=== PATIENT | male | born 1995 | race Caucasian/White ===

== ENCOUNTER 2016-07-23 10:14 | Inpatient (IN) | payer OTHER ==
[~2016-07-23] VITALS: Ht 180.3 cm; Wt 72.9 kg
[2016-07-23] MEDS ORDERED: SODIUM CHLORIDE 0.9% 1000ML 1,000 ML IV STA ×2 (10:39)
[2016-07-23] MEDS ORDERED: ONDANSETRON INJ 2 MG/ML 2 ML VIAL IV STA (10:39)
--- NOTE | 2016-07-23 10:41 | EMERGENCY ROOM VISIT NOTE ---
History Report prepared by Olya: Viola Zaragoza Under the Supervision of: Dr. Eder Skinner D.O. First contact with patient: 10:19 Chief Complaint: ABDOMINAL PAIN Stated Complaint: SEVERE ABD. PAIN History of Present Illness The patient is a 21 year old male who presents to the Emergency Room with complaints of constant severe abdominal pain beginning 1 day prior to arrival. He notes that the pain does not change location and does not radiate to his back or chest. The patient is experiencing nausea and has been vomiting since 1am this morning. He denies rectal bleeding, diarrhea, fever, chills, or worsening of pain with walking. 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 A total of 10 systems reviewed and were otherwise negative. Past Medical & Surgical Medical Problems: (1) No chronic problems (2) SBO (small bowel obstruction) Surgical Problems: (1) S/P appendectomy Family History Patient reports no known family medical history. Social History Smoking Status: Never Smoker Smokeless Tobacco Use: No Alcohol Use: none Marital Status: single Housing Status: lives alone Occupation Status: employed Current/Historical Medications No Active Prescriptions or Reported Meds Allergies Coded Allergies: No Known Allergies (Unverified , 07/23/16) Physical Exam Vital Signs Date Time Temp Pulse Resp B/P Pulse Ox O2 Delivery O2 Flow Rate FiO2 07/23/16 16:20 66 10 136/73 98 Room Air 07/23/16 15:31 Room Air 07/23/16 14:58 82 07/23/16 14:21 77 16 124/73 98 Room Air 07/23/16 12:14 85 16 121/70 99 Room Air 07/23/16 11:07 84 07/23/16 10:26 36.6 99 16 133/81 100 Room Air Physical Exam GENERAL: Patient is awake, alert, and in no acute distress. Patient is resting comfortably and showing no signs of anxiety EYES: The conjunctivae are clear. The pupils are round and reactive. EARS, NOSE, MOUTH AND THROAT: The nose is without any evidence of any deformity. Mucous membranes are moist tongue is midline NECK: The neck is nontender and supple. RESPIRATORY: Normal respiratory effort is noted there is no evidence of wheezing rhonchi or rales CARDIOVASCULAR: Regular rate and rhythm noted there no murmurs rubs or gallops normal S1 normal S2 GASTROINTESTINAL: The abdomen is soft. Bowel sounds are present in all quadrants. Abdomen is moderately distended and diffusely tender, guarding across mid abdomen, no definite focal tenderness was illicit. MUSCULOSKELETAL/EXTREMITIES: There is no evidence of gross deformity full range of motion is noted in the hips and shoulders SKIN: There is no obvious evidence of any rash. There are no petechiae, pallor or cyanosis noted. NEUROLOGIC: Patient is awake alert and oriented x3 Medical Decision & Procedures ER Provider Diagnostic Interpretation: CT results as stated below per my review and radiologist interpretation. CT OF THE ABDOMEN AND PELVIS WITH CONTRAST CLINICAL HISTORY: Lower abdominal pain and vomiting. History of abdominal surgery. COMPARISON STUDY: None. TECHNIQUE: Following IV administration of 93 mL of Optiray-320, axial images of the abdomen and pelvis were obtained from the lung bases to the proximal femurs. Images were reviewed in the axial, sagittal, and coronal planes. IV contrast was administered without complication. Oral contrast was administered. CT DOSE: 378.59 mGy.cm FINDINGS: Lung bases are clear. The liver, spleen, adrenal glands, kidneys and pancreas are normal with the exception of an 8 mm hypodense lesion within the lower pole of the left kidney. This is too small to characterize but likely reflects a cyst. No pneumatosis, free air or portal venous gas is present. There is a small amount of lower abdominal and pelvic ascites. There is no abscess. There is mild dilatation of the mid small bowel with a small bowel feces sign and discrete transition point within the right lower quadrant shown on axial image 269 of 461. This represents a small bowel obstruction. Mild wall thickening of several small bowel loops is noted. Distal small bowel is decompressed. There is no lymphadenopathy. No suspicious skeletal lesions are identified. The appendix is not visualized and by report is surgically absent. IMPRESSION: Findings consistent with a moderate grade small bowel obstruction with transition point within the right lower quadrant, within the mid ileum. Associated mesenteric infiltration, a small amount of ascites and mild small bowel wall thickening. No pneumatosis, free air or portal venous gas. Given the clinical history, this obstruction is statistically on the basis of adhesions. Electronically signed by: Trevin Sosa M.D. 07/23/2016 1:39 PM Dictated Date/Time: 07/23/2016 1:29 PM Laboratory Results 07/23/16 10:55 Red Blood Count 5.86, Mean Corpuscular Volume 82.4, Mean Corpuscular Hemoglobin 28.3, Mean Corpuscular Hemoglobin Concent 34.4, Mean Platelet Volume 9.6, Neutrophils (%) (Auto) 84.4, Lymphocytes (%) (Auto) 8.3, Monocytes (%) (Auto) 6.6, Eosinophils (%) (Auto) 0.2, Basophils (%) (Auto) 0.1, Neutrophils # (Auto) 9.28, Lymphocytes # (Auto) 0.91, Monocytes # (Auto) 0.72, Eosinophils # (Auto) 0.02, Basophils # (Auto) 0.01 07/23/16 10:55 Test 07/23/16 10:55 07/23/16 12:17 White Blood Count 10.98 K/uL (4.8-10.8) Red Blood Count 5.86 M/uL (4.7-6.1) Hemoglobin 16.6 g/dL (14.0-18.0) Hematocrit 48.3 % (42-52) Mean Corpuscular Volume 82.4 fL (80-100) Mean Corpuscular Hemoglobin 28.3 pg (25-34) Mean Corpuscular Hemoglobin Concent 34.4 g/dl (32-36) Platelet Count 313 K/uL (130-400) Mean Platelet Volume 9.6 fL (7.4-10.4) Neutrophils (%) (Auto) 84.4 % Lymphocytes (%) (Auto) 8.3 % Monocytes (%) (Auto) 6.6 % Eosinophils (%) (Auto) 0.2 % Basophils (%) (Auto) 0.1 % Neutrophils # (Auto) 9.28 K/uL (1.4-6.5) Lymphocytes # (Auto) 0.91 K/uL (1.2-3.4) Monocytes # (Auto) 0.72 K/uL (0.11-0.59) Eosinophils # (Auto) 0.02 K/uL (0-0.5) Basophils # (Auto) 0.01 K/uL (0-0.2) RDW Standard Deviation 35.1 fL (36.4-46.3) RDW Coefficient of Variation 11.7 % (11.5-14.5) Immature Granulocyte % (Auto) 0.4 % Immature Granulocyte # (Auto) 0.04 K/uL (0.00-0.02) Anion Gap 8.0 mmol/L (3-11) Est Creatinine Clear Calc Drug Dose 143.4 ml/min Estimated GFR () 145.1 Estimated GFR (Non- 125.2 BUN/Creatinine Ratio 20.9 (10-20) Calcium Level 9.7 mg/dl (8.5-10.1) Total Bilirubin 1.1 mg/dl (0.2-1) Direct Bilirubin mg/dl (0-0.2) Aspartate Amino Transf (AST/SGOT) 26 U/L (15-37) Alanine Aminotransferase (ALT/SGPT) 40 U/L (12-78) Alkaline Phosphatase 90 U/L (45-117) Total Protein 8.7 gm/dl (6.4-8.2) Albumin 5.2 gm/dl (3.4-5.0) Lipase 184 U/L (73-393) Chemistry Specimen Hemolysis Urine Color YELLOW Urine Appearance CLOUDY (CLEAR) Urine pH 8.0 (4.5-7.5) Urine Specific [place] 1.016 (1.000-1.030) Urine Protein NEG (NEG) Urine Glucose (UA) NEG (NEG) Urine Ketones 3+ (NEG) Urine Occult Blood NEG (NEG) Urine Nitrite NEG (NEG) Urine Bilirubin NEG (NEG) Urine Urobilinogen NEG (NEG) Urine Leukocyte Esterase NEG (NEG) Urine WBC (Auto) 0 /hpf (0-5) Urine RBC (Auto) 0-4 /hpf (0-4) Urine Hyaline Casts (Auto) 0 /lpf (0-5) Urine Epithelial Cells (Auto) 5-10 /lpf (0-5) Urine Bacteria (Auto) NEG (NEG) Laboratory results per my review. Medications Administered Medications (Trade) Dose Ordered Sig/Breonna Route Start Time Stop Time Status Last Admin Dose Admin Sodium Chloride 1,000 ml @ 999 mls/hr Q1H1M STAT IV 07/23/16 10:39 07/23/16 11:39 DC 07/23/16 10:54 999 MLS/HR Sodium Chloride (Nss 1000ml) 1,000 ml @ 250 mls/hr Q4H STAT IV 07/23/16 10:39 07/23/16 14:38 DC 07/23/16 12:10 250 MLS/HR Ondansetron HCl (Zofran Inj) 4 mg NOW STAT IV 07/23/16 10:39 07/23/16 10:41 DC 07/23/16 10:54 4 MG Morphine Sulfate (MoRPHine SULFATE INJ) 4 mg Q15M PRN IV 07/23/16 10:45 08/06/16 10:44 07/23/16 14:14 4 MG ED Course 1033: The patient was evaluated in room B4. A complete history and physical examination were performed. 1039: Zofran Inj 4 mg IV, Sodium Chloride 1,000 ml @ 250 mls/hr IV, Sodium Chloride 1,000 ml @ 999 mls/hr IV. 1045: Morphine Sulfate Inj 4 mg IV. 1404: I discussed test results with the patient. 1407: I discussed the patient's case with Dr. Ibarra- [facility] [place]. The patient will be evaluated for further management. Dr. Ibarra would also like surgery to be consulted. 1412: I spoke with CHRISTIAN Gramajo - General surgery about the patient. She will come see the patient. 1419: Upon reevaluation, the patient is hemodynamically stable. I discussed results and treatment plan with him. He verbalizes agreement and understanding. I spoke with CHRISTIAN Moore of General Surgery. The patient will be evaluated for further management and care. Medical Decision Differential diagnosis: Etiologies such as appendicitis, diverticulitis, PUD, biliary pathology, UTI, pancreatitis, obstruction, mesenteric ischemia, aortic pathology, infections, inflammatory bowel disease, renal colic, as well as others were entertained. Nursing notes reviewed. The patient is a 21-year-old male who presented to the emergency department for an evaluation of abdominal pain and vomiting. [facility] and was sent to our emergency department for further evaluation. On physical exam the patient had significant abdominal pain. He also had abdominal distention. 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 He feels as though he had his appendix removed at that time as well. The patient's CT appear to be consistent with small bowel suction. I discussed the patient's laboratory and radiographic studies with him. He was treated with IV fluids IV pain medicine and IV antiemetics. On subsequent reevaluation he was feeling much better. I discussed his case with the on-call general surgery group. I also discussed his case with the on-call [facility] hospitalist. They've agreed to evaluate the patient in the emergency department for further management and disposition. Consults Time Called: 1406 Consulting Physician: Dr. Fred FLOWERS Returned Call: 1407 I discussed the patient's case with Dr. Katelin FLOWERS. The patient will be evaluated for further management. Dr. Ibarra would also like surgery to be consulted. Additional Consults: Time Called: 1410 Consulted Physician: CHRISTIAN Gramajo - General Surgery Returned Call: 1412 Additional Comments: I spoke with CHRISTIAN Gramajo - General surgery about the patient. She will come see the patient. Impression Primary Impression: Small bowel obstruction Additional Impression: Abdominal pain Scribe Attestation The scribe's documentation has been prepared under my direction and personally reviewed by me in its entirety. I confirm that the note above accurately reflects all work, treatment, procedures, and medical decision making performed by me. Departure Information Dispostion Being Evaluated By Hospitalist Prescriptions No Active Prescriptions or Reported Meds Referrals No Doctor, Assigned (PCP) Problem Qualifiers Additional Impression: Abdominal pain Abdominal location: generalized Qualified Codes: R10.84 - Generalized abdominal pain
[2016-07-23] MEDS: MoRPHine SULFATE 4 MG/ML 1 ML CARP\\VIAL IV PRN ×2 (10:55→14:14)
[2016-07-23] MEDS ORDERED: OPTIRAY 320 IV PRN (11:00)
[2016-07-23 11:12] LABS: BASO % 0.1 %; BASO ABS # 0.01 K/uL (0-0.2); COMPLETE YES; EOS % 0.2 %; HEMATOCRIT 48.3 % (42-52); IG% 0.4 %; LYMPH % 8.3 %; LYMPH ABS # 0.91 K/uL (1.2-3.4); MEAN CELL VOLUME 82.4 fL (80-100); MEAN CORPUSCULAR HEMOGLOBIN 28.3 pg (25-34); MEAN CORPUSCULAR HGB CONC 34.4 g/dl (32-36); MEAN PLATELET VOLUME 9.6 fL (7.4-10.4); MONO % 6.6 %; NEUT % 84.4 %; PLATELET COUNT 313 K/uL (130-400); RED BLOOD COUNT 5.86 M/uL (4.7-6.1); WHITE BLOOD COUNT 10.98 K/uL (4.8-10.8)
[2016-07-23 11:47] LABS: ALKALINE PHOSPHATASE 90 U/L (45-117); ALT/SGPT 40 U/L (12-78); AST/SGOT 26 U/L (15-37); BLOOD UREA NITROGEN 18 mg/dl (7-18); BUN/CREATININE RATIO 20.9 (10-20); CALCIUM 9.7 mg/dl (8.5-10.1); CARBON DIOXIDE 28 mmol/L (21-32); CHLORIDE 104 mmol/L (98-107); CREATININE 0.84 mg/dl (0.60-1.40); GLUCOSE 90 mg/dl (70-99); POTASSIUM 4.1 mmol/L (3.5-5.1); SODIUM 140 mmol/L (136-145)
[2016-07-23 12:33] LABS: MANUAL MICROSCOPIC REQUIRED? NO; REVIEW REQ? NO; URINE APPEARANCE CLOUDY (CLEAR); URINE BILIRUBIN NEG (NEG); URINE COLOR YELLOW; URINE NITRITE NEG (NEG); URINE SPECIFIC GRAVITY 1.016 (1.000-1.030); UROBILINOGEN NEG (NEG)
--- NOTE | 2016-07-23 13:40 | DIAGNOSTIC IMAGING REPORT ---
CT OF THE ABDOMEN AND PELVIS WITH CONTRAST CLINICAL HISTORY: Lower abdominal pain and vomiting. History of abdominal surgery. COMPARISON STUDY: None. TECHNIQUE: Following IV administration of 93 mL of Optiray-320, axial images of the abdomen and pelvis were obtained from the lung bases to the proximal femurs. Images were reviewed in the axial, sagittal, and coronal planes. IV contrast was administered without complication. Oral contrast was administered. CT DOSE: 378.59 mGy.cm FINDINGS: Lung bases are clear. The liver, spleen, adrenal glands, kidneys and pancreas are normal with the exception of an 8 mm hypodense lesion within the lower pole of the left kidney. This is too small to characterize but likely reflects a cyst. No pneumatosis, free air or portal venous gas is present. There is a small amount of lower abdominal and pelvic ascites. There is no abscess. There is mild dilatation of the mid small bowel with a small bowel feces sign and discrete transition point within the right lower quadrant shown on axial image 269 of 461. This represents a small bowel obstruction. Mild wall thickening of several small bowel loops is noted. Distal small bowel is decompressed. There is no lymphadenopathy. No suspicious skeletal lesions are identified. The appendix is not visualized and by report is surgically absent. IMPRESSION: Findings consistent with a moderate grade small bowel obstruction with transition point within the right lower quadrant, within the mid ileum. Associated mesenteric infiltration, a small amount of ascites and mild small bowel wall thickening. No pneumatosis, free air or portal venous gas. Given the clinical history, this obstruction is statistically on the basis of adhesions. Electronically signed by: Trevin Sosa M.D. 07/23/2016 1:39 PM Dictated Date/Time: 07/23/2016 1:29 PM
[2016-07-23 15:31] VITALS: Ht 180.3 cm; Wt 72.9 kg
--- NOTE | 2016-07-23 15:33 | Surgery Consultation ---
Consultation Date of Consultation: July 23, 2016. Attending Physician: Dr. Lanza Reason for Consultation: SBO (Cortney Mc PA-C) History of Present Illness Cisco is a pleasant 21 year-old male who presented to emergency department today with complaint of abdominal pain and nausea for the last 24 hours with associated vomiting for last 12 hours. Cisco states a few months ago he had on and off cramping abdominal pain that resolved on its own. States he did not see a doctor for it because it resolved. Yesterday he noticed mid abdominal pain, sharp stabbing in nature, chronic, not resolving and no radiation. States he had associated nausea and then vomiting that started at 4 am. Was not able to keep anything down. He had surgery when he was about 6 weeks old for Hirschsprung's disease and had prophylactic appendectomy. No other abdominal surgeries since. States his last bowel movement was 24 hours ago which was normal. Denies of every being admitted or treated for bowel obstruction in the past. Denies of any fever, chills, sweats, chest pain, shortness of breathing, palpitations or change in bowel habits. CT scan showed SBO with transition point in the RLQ and small bowel wall thickening consistent with Small bowel obstruction. He has slight leukocytosis of 10.9 Total bilirubin was slightly elevated at 1.1 LFTS and lipase within normal limits. (Cortney Mc PA-C) Past Medical/Surgical History Medical Problems: (1) Abdominal pain Status: Acute (2) Small bowel obstruction Status: Acute (Cortney Mc PA-C) Family History Patient reports no known family medical history. (Cortney Mc PA-C) Patient reports no known family medical history. (Delvis Lanza M.D.) Social History Smoking Status: Never Smoker Smokeless Tobacco Use: No Marital Status: single Housing Status: lives alone Occupation Status: employed (Cortney Mc PA-C) Allergies Coded Allergies: No Known Allergies (Unverified , 07/23/16) Home Medications No Active Prescriptions or Reported Meds Current Inpatient Medications Current Inpatient Medications Medications (Trade) Dose Ordered Sig/Breonna Route Start Time Stop Time Status Last Admin Dose Admin Morphine Sulfate (MoRPHine SULFATE INJ) 4 mg Q15M PRN IV 07/23/16 10:45 08/06/16 10:44 07/23/16 14:14 4 MG Ioversol (Optiray 320) 100 ml UD PRN IV 07/23/16 11:00 07/27/16 10:59 (Cortney Mc, PA-C) Review of Systems Constitutional: No chills, No fever, No sweats Respiratory: No dyspnea on exertion, No shortness of breath Cardiovascular: No chest pain, No palpitations Abdomen: + nausea, + pain, + vomiting, No constipation, No diarrhea Integumentary: No itch, No rash (Cortney Mc ., PA-C) Physical Exam Date Time Temp Pulse Resp B/P Pulse Ox O2 Delivery O2 Flow Rate FiO2 07/23/16 14:58 82 07/23/16 14:21 77 16 124/73 98 Room Air 07/23/16 12:14 85 16 121/70 99 Room Air 07/23/16 11:07 84 07/23/16 10:26 36.6 99 16 133/81 100 Room Air General Appearance: WD/WN, no apparent distress, + thin Head: normocephalic, atraumatic Eyes: sclerae normal Neck: trachea midline Respiratory/Chest: lungs clear, normal breath sounds, no respiratory distress, no accessory muscle use Cardiovascular: regular rate, rhythm, no murmur Abdomen/GI: soft, no organomegaly, no pulsatile mass, + tenderness (mid abdomen on light palpation, no rigidity or peritonitis), + guarding Extremities/Musculoskelatal: normal inspection, no pedal edema Neurologic/Psych: alert, normal mood/affect, oriented x 3 Skin: normal color, warm/dry, no rash (Cortney Mc ., PA-C) Laboratory Results Last 24 Hours Test 07/23/16 10:55 07/23/16 12:17 White Blood Count 10.98 K/uL Red Blood Count 5.86 M/uL Hemoglobin 16.6 g/dL Hematocrit 48.3 % Mean Corpuscular Volume 82.4 fL Mean Corpuscular Hemoglobin 28.3 pg Mean Corpuscular Hemoglobin Concent 34.4 g/dl Platelet Count 313 K/uL Mean Platelet Volume 9.6 fL Neutrophils (%) (Auto) 84.4 % Lymphocytes (%) (Auto) 8.3 % Monocytes (%) (Auto) 6.6 % Eosinophils (%) (Auto) 0.2 % Basophils (%) (Auto) 0.1 % Neutrophils # (Auto) 9.28 K/uL Lymphocytes # (Auto) 0.91 K/uL Monocytes # (Auto) 0.72 K/uL Eosinophils # (Auto) 0.02 K/uL Basophils # (Auto) 0.01 K/uL RDW Standard Deviation 35.1 fL RDW Coefficient of Variation 11.7 % Immature Granulocyte % (Auto) 0.4 % Immature Granulocyte # (Auto) 0.04 K/uL Sodium Level 140 mmol/L Potassium Level 4.1 mmol/L Chloride Level 104 mmol/L Carbon Dioxide Level 28 mmol/L Anion Gap 8.0 mmol/L Blood Urea Nitrogen 18 mg/dl Creatinine 0.84 mg/dl Est Creatinine Clear Calc Drug Dose 143.4 ml/min Estimated GFR () 145.1 Estimated GFR (Non- 125.2 BUN/Creatinine Ratio 20.9 Random Glucose 90 mg/dl Calcium Level 9.7 mg/dl Total Bilirubin 1.1 mg/dl Direct Bilirubin mg/dl Aspartate Amino Transf (AST/SGOT) 26 U/L Alanine Aminotransferase (ALT/SGPT) 40 U/L Alkaline Phosphatase 90 U/L Total Protein 8.7 gm/dl Albumin 5.2 gm/dl Lipase 184 U/L Chemistry Specimen Hemolysis Urine Color YELLOW Urine Appearance CLOUDY Urine pH 8.0 Urine Specific [place] 1.016 Urine Protein NEG Urine Glucose (UA) NEG Urine Ketones 3+ Urine Occult Blood NEG Urine Nitrite NEG Urine Bilirubin NEG Urine Urobilinogen NEG Urine Leukocyte Esterase NEG Urine WBC (Auto) 0 /hpf Urine RBC (Auto) 0-4 /hpf Urine Hyaline Casts (Auto) 0 /lpf Urine Epithelial Cells (Auto) 5-10 /lpf Urine Bacteria (Auto) NEG CT OF THE ABDOMEN AND PELVIS WITH CONTRAST CLINICAL HISTORY: Lower abdominal pain and vomiting. History of abdominal surgery. COMPARISON STUDY: None. TECHNIQUE: Following IV administration of 93 mL of Optiray-320, axial images of the abdomen and pelvis were obtained from the lung bases to the proximal femurs. Images were reviewed in the axial, sagittal, and coronal planes. IV contrast was administered without complication. Oral contrast was administered. CT DOSE: 378.59 mGy.cm FINDINGS: Lung bases are clear. The liver, spleen, adrenal glands, kidneys and pancreas are normal with the exception of an 8 mm hypodense lesion within the lower pole of the left kidney. This is too small to characterize but likely reflects a cyst. No pneumatosis, free air or portal venous gas is present. There is a small amount of lower abdominal and pelvic ascites. There is no abscess. There is mild dilatation of the mid small bowel with a small bowel feces sign and discrete transition point within the right lower quadrant shown on axial image 269 of 461. This represents a small bowel obstruction. Mild wall thickening of several small bowel loops is noted. Distal small bowel is decompressed. There is no lymphadenopathy. No suspicious skeletal lesions are identified. The appendix is not visualized and by report is surgically absent. IMPRESSION: Findings consistent with a moderate grade small bowel obstruction with transition point within the right lower quadrant, within the mid ileum. Associated mesenteric infiltration, a small amount of ascites and mild small bowel wall thickening. No pneumatosis, free air or portal venous gas. Given the clinical history, this obstruction is statistically on the basis of adhesions. (Cortney Mc ., PA-C) Assessment & Plan SBO- transition point in RLQ - slight leukocytosis - afebrile - abdominal pain with slight guarding in mid abdomen, no peritonitis or rigidity - feeling comfortable now after morphine and Zofran Plan : Conservative management recommended at this time. : IV fluids, IV pain management as needed, keep NPO until bowel function resumes, IV zofran as needed. repeat am labs, follow wbc Will continue to follow patient Dr. Lanza has seen and examined patient, agrees with above findings and plan. (Cortney Mc ., PA-C) I interviewed and examined this patient and I agree with the above note. He had symptoms and a CT scan consistent with an SBO but at this time his symptoms have significantly decreased. I would agree with conservative management at this time. (Delvis Lanza M.D.)
--- NOTE | 2016-07-23 15:37 | History and Physical ---
History & Physical Date & Time of Service: July 23, 2016 at 15:35 Chief Complaint: Severe Abd. Pain Primary Care Physician: No Doctor, Assigned History of Present Illness Source: patient This is a 21 yo M with PMHx of Hirsprungs disease and prophylactic appendectomy at 6 weeks old, presenting to the ED with worsening abdominal pain in the past 24 hours. The patient reports he had severe abdominal pain, nonradiating which began yesterday after eating lunch at approximately noon. He vomited after this around 1 PM. He took no medication at home for pain or nausea, but did take one immodium tablet for gas and bloating. Severe pain persisted throughout the day. He went to sleep but was unable to fall asleep due to pain , and again vomited around 4 AM then presented to the hospital. He denies any fevers, chills or sweats. The patient denies any lightheadedness or dizziness. He has received 4 mg of morphine in the ER in his pain has significantly been reduced. He has also received Zofran for nausea and feels much better. In the ER patient has an elevated white count of 10.98, with a left shift. UA with elevated pH equal 8.0, 3+ ketones. CT of the abdomen/pelvis was completed showing a moderate grade small bowel obstruction with a transition point within the right lower quadrant, within the mid ileum. Past Medical/Surgical History Hirschsprung's disease Family History Hirschsprung disease BROTHER SISTER Hypertension FATHER Social History Smoking Status: Never Smoker Smokeless Tobacco Use: No Alcohol Use: none Drug Use: none Marital Status: single Housing status: lives with family Occupational Status: employed ([id number]) Allergies Coded Allergies: No Known Allergies (Unverified , 07/23/16) Home Medications No Active Prescriptions or Reported Meds Review of Systems Constitutional: No fever, sweats or chills Eyes: No diplopia, no worsening or blurred vision ENT: normal hearing, no trouble swallowing Respiratory: No cough, sputum, dyspnea at rest or on exertion Cardiovascular: No chest pain, tightness or palpitations Abdomen: See history of present illness Musculoskeletal: No joint pain, calf pain, swelling Neurologic: No weakness, numbness/tingling, or balance problems Psychiatric: No anxiety or depression Skin: No rash or itch Physical Exam Vital Signs Date Time Temp Pulse Resp B/P Pulse Ox O2 Delivery O2 Flow Rate FiO2 07/23/16 14:58 82 07/23/16 14:21 77 16 124/73 98 Room Air 07/23/16 12:14 85 16 121/70 99 Room Air 07/23/16 11:07 84 07/23/16 10:26 36.6 99 16 133/81 100 Room Air General: awake, alert, healthy-appearing, physically fit male in NAD Head: Normocephalic, atraumatic ENT: PERRL, EOMI, no pharyngeal exudate, mucous membranes moist Chest: Clear to auscultation, on room air, no adventitious breath sounds Cardiac: Regular rate and rhythm, no murmur, no JVD, normal peripheral pulses, good capillary refill Abdominal: NABS x 4 quadrants, soft, nondistended, minimally tender to palpation in mid abdomen, minimal guarding, no rebound or tenderness Extremities: Normal inspection, no peripheral edema or erythema, calfs nontender to palpation Psych: Normal mood and affect Neuro: AAO x 3, strength intact bilaterally and related 5/5, no motor deficits, speech is clear, no peripheral sensory deficits Diagnostics Laboratory Results Results Past 24 Hours Test 07/23/16 10:55 07/23/16 12:17 Range/Units White Blood Count 10.98 4.8-10.8 K/uL Red Blood Count 5.86 4.7-6.1 M/uL Hemoglobin 16.6 14.0-18.0 g/dL Hematocrit 48.3 42-52 % Mean Corpuscular Volume 82.4 80-100 fL Mean Corpuscular Hemoglobin 28.3 25-34 pg Mean Corpuscular Hemoglobin Concent 34.4 32-36 g/dl Platelet Count 313 130-400 K/uL Mean Platelet Volume 9.6 7.4-10.4 fL Neutrophils (%) (Auto) 84.4 % Lymphocytes (%) (Auto) 8.3 % Monocytes (%) (Auto) 6.6 % Eosinophils (%) (Auto) 0.2 % Basophils (%) (Auto) 0.1 % Neutrophils # (Auto) 9.28 1.4-6.5 K/uL Lymphocytes # (Auto) 0.91 1.2-3.4 K/uL Monocytes # (Auto) 0.72 0.11-0.59 K/uL Eosinophils # (Auto) 0.02 0-0.5 K/uL Basophils # (Auto) 0.01 0-0.2 K/uL RDW Standard Deviation 35.1 36.4-46.3 fL RDW Coefficient of Variation 11.7 11.5-14.5 % Immature Granulocyte % (Auto) 0.4 % Immature Granulocyte # (Auto) 0.04 0.00-0.02 K/uL Sodium Level 140 136-145 mmol/L Potassium Level 4.1 3.5-5.1 mmol/L Chloride Level 104 98-107 mmol/L Carbon Dioxide Level 28 21-32 mmol/L Anion Gap 8.0 3-11 mmol/L Blood Urea Nitrogen 18 7-18 mg/dl Creatinine 0.84 0.60-1.40 mg/dl Est Creatinine Clear Calc Drug Dose 143.4 ml/min Estimated GFR () 145.1 Estimated GFR (Non- 125.2 BUN/Creatinine Ratio 20.9 10-20 Random Glucose 90 70-99 mg/dl Calcium Level 9.7 8.5-10.1 mg/dl Total Bilirubin 1.1 0.2-1 mg/dl Direct Bilirubin 0-0.2 mg/dl Aspartate Amino Transf (AST/SGOT) 26 15-37 U/L Alanine Aminotransferase (ALT/SGPT) 40 12-78 U/L Alkaline Phosphatase 90 45-117 U/L Total Protein 8.7 6.4-8.2 gm/dl Albumin 5.2 3.4-5.0 gm/dl Lipase 184 73-393 U/L Chemistry Specimen Hemolysis Urine Color YELLOW Urine Appearance CLOUDY CLEAR Urine pH 8.0 4.5-7.5 Urine Specific [place] 1.016 1.000-1.030 Urine Protein NEG NEG Urine Glucose (UA) NEG NEG Urine Ketones 3+ NEG Urine Occult Blood NEG NEG Urine Nitrite NEG NEG Urine Bilirubin NEG NEG Urine Urobilinogen NEG NEG Urine Leukocyte Esterase NEG NEG Urine WBC (Auto) 0 0-5 /hpf Urine RBC (Auto) 0-4 0-4 /hpf Urine Hyaline Casts (Auto) 0 0-5 /lpf Urine Epithelial Cells (Auto) 5-10 0-5 /lpf Urine Bacteria (Auto) NEG NEG Diagnostic Radiology CT OF THE ABDOMEN AND PELVIS WITH CONTRAST 07/23/16 IMPRESSION: Findings consistent with a moderate grade small bowel obstruction with transition point within the right lower quadrant, within the mid ileum. Associated mesenteric infiltration, a small amount of ascites and mild small bowel wall thickening. No pneumatosis, free air or portal venous gas. Given the clinical history, this obstruction is statistically on the basis of adhesions. Impression Assessment and Plan This is a 21 yo M with PMHx of Hirsprungs disease and prophylactic appendectomy at 6 weeks old, presenting to the ED with worsening abdominal pain in the past 24 hours. Small bowel obstruction History of Hirschsprung's disease and prophylactic appendectomy - Admit to [facility] Gen. surgery on board - appreciate recommendations - Patient with a mild leukocytosis with left shift, currently general surgery feels no indication for antibiotics at the patient does not display signs of peritonitis. Follow CBC with a.m. labs - CT of the abdomen reviewed as above. - Keep the patient NPO - Maintenance IVFs @ 100 mL/hr - Cont supportive care with antiemetics - if worsening nausea/vomiting consider NGT placement. - Pain control with morphine 2 mg Q1H for severe abdominal pain DVT prophylaxis: Teds, SCDs, Lovenox 40 mg subcutaneous CODE STATUS: Full code Disposition: Patient is from home, lives with family, patient will require set up with PCP and general surgeon for outpatient follow-up. I agree with PA assessment and plan and have seen and examined pt myself Resting comfortably in bed VSS Labs reviewed SBO on CT General surg recs appreciated Cont NPO, IVF No need for antibx, not acute abd Cont to monitor Level of Care Med/Surg Advanced Directives Existing Advance Directive: No Existing Living Will: No Existing Power of [place] Administrator: No Existing Health Care Proxy: No Resuscitation Status FULL RESUSCITATION VTE Prophylaxis VTE Risk Assessment Done? Y/N: Yes Risk Level: Very Low Given or contraindicated: Enoxaparin (Lovenox)SQ, T.E.D. Stockings, SCD's
[2016-07-23] MEDS: SODIUM CHLORIDE 0.9% 1000ML 1,000 ML IV SCH ×2 (15:38→17:58)
[2016-07-23] MEDS ORDERED: ACETAMINOPHEN 325 MG TAB PO PRN (15:45)
[2016-07-23] MEDS ORDERED: MoRPHine SULFATE 2 MG/ML CARP IV PRN ×2 (15:45→16:45)
[2016-07-23 16:55] VITALS: BP 150/77; PULSE 71; TEMP 37.2; O2SAT 98
[2016-07-23 18:13] VITALS: BP 151/72
[2016-07-23 18:49] LABS: PARTIAL THROMBOPLASTIN RATIO 0.9; PROTHROMBIN TIME (PATIENT) 10.7 SECONDS (9.0-12.0)
[2016-07-23] MEDS: ONDANSETRON INJ 2 MG/ML 2 ML VIAL IV PRN (19:36)
[2016-07-23] MEDS: MoRPHine SULFATE 2 MG/ML CARP IV PRN ×2 (20:22→23:27)
[2016-07-23] MEDS: ENOXAPARIN 40 MG/0.4 ML SYR SQ SCH (21:12)
[2016-07-23 23:20] VITALS: BP 144/77; PULSE 73; TEMP 36.3; O2SAT 97
[2016-07-24] MEDS: SODIUM CHLORIDE 0.9% 1000ML 1,000 ML IV SCH ×4 (01:54→21:11)
[2016-07-24] MEDS: MoRPHine SULFATE 2 MG/ML CARP IV PRN ×5 (03:32→14:18)
[2016-07-24] MEDS: ONDANSETRON INJ 2 MG/ML 2 ML VIAL IV PRN (03:36)
[2016-07-24 03:44] VITALS: BP 160/81; PULSE 63; TEMP 37; O2SAT 98
[2016-07-24 07:19] VITALS: BP 147/75; PULSE 66; TEMP 37; O2SAT 99
--- NOTE | 2016-07-24 10:13 | Surgery Progress Note ---
Surgery Progress Note Date of Service July 24, 2016. Subjective Post OP Day: HD # 1 + complaints (pain last night, restless, Morphine helping), + feeling well, + pain controlled, + vomiting (one episode of emesis last evening, none since), No SOB, No bowel movement, No chest pain, No flatus, No nausea Objective Vital Signs: Date Time Temp Pulse Resp B/P Pulse Ox O2 Delivery O2 Flow Rate FiO2 07/24/16 07:19 37.0 66 16 147/75 99 Room Air 07/24/16 03:44 37.0 63 16 160/81 98 Room Air 07/23/16 23:25 Room Air 07/23/16 23:20 36.3 73 16 144/77 97 Room Air 07/23/16 18:13 151/72 07/23/16 17:00 Room Air 07/23/16 16:55 37.2 71 20 150/77 98 Room Air 07/23/16 16:20 66 10 136/73 98 Room Air 07/23/16 15:31 Room Air 07/23/16 14:58 82 07/23/16 14:21 77 16 124/73 98 Room Air 07/23/16 12:14 85 16 121/70 99 Room Air 07/23/16 11:07 84 07/23/16 10:26 36.6 99 16 133/81 100 Room Air General Appearance: WD/WN, no apparent distress Head: normocephalic, atraumatic Neck: trachea midline Respiratory/Chest: lungs clear, normal breath sounds, no respiratory distress, no accessory muscle use Cardiovascular: regular rate, rhythm, no murmur Abdomen: soft, + distended (mild distention), + guarding (mid abdomen), + tenderness (mid abdomen, periumbilical) Laboratory Results: Results Past 24 Hours Test 07/23/16 10:55 07/23/16 12:17 07/23/16 18:23 Range/Units White Blood Count 10.98 4.8-10.8 K/uL Red Blood Count 5.86 4.7-6.1 M/uL Hemoglobin 16.6 14.0-18.0 g/dL Hematocrit 48.3 42-52 % Mean Corpuscular Volume 82.4 80-100 fL Mean Corpuscular Hemoglobin 28.3 25-34 pg Mean Corpuscular Hemoglobin Concent 34.4 32-36 g/dl Platelet Count 313 130-400 K/uL Mean Platelet Volume 9.6 7.4-10.4 fL Neutrophils (%) (Auto) 84.4 % Lymphocytes (%) (Auto) 8.3 % Monocytes (%) (Auto) 6.6 % Eosinophils (%) (Auto) 0.2 % Basophils (%) (Auto) 0.1 % Neutrophils # (Auto) 9.28 1.4-6.5 K/uL Lymphocytes # (Auto) 0.91 1.2-3.4 K/uL Monocytes # (Auto) 0.72 0.11-0.59 K/uL Eosinophils # (Auto) 0.02 0-0.5 K/uL Basophils # (Auto) 0.01 0-0.2 K/uL RDW Standard Deviation 35.1 36.4-46.3 fL RDW Coefficient of Variation 11.7 11.5-14.5 % Immature Granulocyte % (Auto) 0.4 % Immature Granulocyte # (Auto) 0.04 0.00-0.02 K/uL Sodium Level 140 136-145 mmol/L Potassium Level 4.1 3.5-5.1 mmol/L Chloride Level 104 98-107 mmol/L Carbon Dioxide Level 28 21-32 mmol/L Anion Gap 8.0 3-11 mmol/L Blood Urea Nitrogen 18 7-18 mg/dl Creatinine 0.84 0.60-1.40 mg/dl Est Creatinine Clear Calc Drug Dose 143.4 ml/min Estimated GFR () 145.1 Estimated GFR (Non- 125.2 BUN/Creatinine Ratio 20.9 10-20 Random Glucose 90 70-99 mg/dl Calcium Level 9.7 8.5-10.1 mg/dl Total Bilirubin 1.1 0.2-1 mg/dl Direct Bilirubin 0-0.2 mg/dl Aspartate Amino Transf (AST/SGOT) 26 15-37 U/L Alanine Aminotransferase (ALT/SGPT) 40 12-78 U/L Alkaline Phosphatase 90 45-117 U/L Total Protein 8.7 6.4-8.2 gm/dl Albumin 5.2 3.4-5.0 gm/dl Lipase 184 73-393 U/L Chemistry Specimen Hemolysis Urine Color YELLOW Urine Appearance CLOUDY CLEAR Urine pH 8.0 4.5-7.5 Urine Specific [place] 1.016 1.000-1.030 Urine Protein NEG NEG Urine Glucose (UA) NEG NEG Urine Ketones 3+ NEG Urine Occult Blood NEG NEG Urine Nitrite NEG NEG Urine Bilirubin NEG NEG Urine Urobilinogen NEG NEG Urine Leukocyte Esterase NEG NEG Urine WBC (Auto) 0 0-5 /hpf Urine RBC (Auto) 0-4 0-4 /hpf Urine Hyaline Casts (Auto) 0 0-5 /lpf Urine Epithelial Cells (Auto) 5-10 0-5 /lpf Urine Bacteria (Auto) NEG NEG Prothrombin Time 10.7 9.0-12.0 SECONDS Prothromb Time International Ratio 1.0 0.9-1.1 Activated Partial Thromboplast Time 22.2 21.0-31.0 SECONDS Partial Thromboplastin Ratio 0.9 Assessment & Plan SBO- transition point in RLQ - vitals stable - labs this morning cancelled? - abdomen soft, mild distention and guarding, no peritonitis - no return of bowel function Plan: Continue conservative management at this time: IV fluids, IV pain medication and Zofran prn, and Keep NPO repeat am labs will continue to monitor Dr. Lanza has seen and examined patient, agrees with above
[2016-07-24 11:24] LABS: BUN/CREATININE RATIO 18.1 (10-20); CREATININE 0.86 mg/dl (0.60-1.40); MAGNESIUM 2.2 mg/dl (1.8-2.4); POTASSIUM 3.8 mmol/L (3.5-5.1)
[2016-07-24 11:28] LABS: CALCIUM 9.1 mg/dl (8.5-10.1)
[2016-07-24 11:47] LABS: BASO % 0.1 %; BASO ABS # 0.01 K/uL (0-0.2); COMPLETE YES; EOS % 0.2 %; HEMATOCRIT 45.1 % (42-52); IG% 0.2 %; LYMPH % 10.8 %; LYMPH ABS # 1.32 K/uL (1.2-3.4); MEAN CELL VOLUME 83.7 fL (80-100); MEAN CORPUSCULAR HEMOGLOBIN 28.6 pg (25-34); MEAN CORPUSCULAR HGB CONC 34.1 g/dl (32-36); MEAN PLATELET VOLUME 10.1 fL (7.4-10.4); MONO % 9.9 %; NEUT % 78.8 %; PLATELET COUNT 313 K/uL (130-400); RED BLOOD COUNT 5.39 M/uL (4.7-6.1); WHITE BLOOD COUNT 12.18 K/uL (4.8-10.8)
--- NOTE | 2016-07-24 12:02 | Hospitalist Progress Note ---
Hospitalist Progress Note Date of Service July 24, 2016. Subjective Pt evaluation today including: conversation w/ patient, physical exam, chart review, lab review, review of studies, conversation w/ cardiology consultant, review of inpatient medication list still complaining of centralized abdominal pain. No nausea. No flatus. No belching. Morphine is helping with abdominal pain. No fever, chills Additional Comments: 6 system review negative. Please see pertinent positives in the history of present illness section. Objective Vital Signs Date Time Temp Pulse Resp B/P Pulse Ox O2 Delivery O2 Flow Rate FiO2 07/24/16 08:00 Room Air 07/24/16 07:19 37.0 66 16 147/75 99 Room Air 07/24/16 03:44 37.0 63 16 160/81 98 Room Air 07/23/16 23:25 Room Air 07/23/16 23:20 36.3 73 16 144/77 97 Room Air 07/23/16 18:13 151/72 07/23/16 17:00 Room Air 07/23/16 16:55 37.2 71 20 150/77 98 Room Air 07/23/16 16:20 66 10 136/73 98 Room Air 07/23/16 15:31 Room Air 07/23/16 14:58 82 07/23/16 14:21 77 16 124/73 98 Room Air 07/23/16 12:14 85 16 121/70 99 Room Air Physical Exam General Appearance: no apparent distress ENT: + pertinent finding (oral mucosa very dry) Neck: no JVD Respiratory/Chest: lungs clear Cardiovascular: regular rate, rhythm Abdomen: soft, + pertinent finding (bowel sounds hypoactive. Mild tenderness to palpation noted in the left lower quadrant and epigastric region. No guarding or rebound tenderness.) Extremities: non-tender, no pedal edema Neurologic/Psychiatric: no motor/sensory deficits, oriented x 3 Skin: warm/dry Laboratory Results 07/24/16 08:19 Red Blood Count 5.39, Mean Corpuscular Volume 83.7, Mean Corpuscular Hemoglobin 28.6, Mean Corpuscular Hemoglobin Concent 34.1, Mean Platelet Volume 10.1, Neutrophils (%) (Auto) 78.8, Lymphocytes (%) (Auto) 10.8, Monocytes (%) (Auto) 9.9, Eosinophils (%) (Auto) 0.2, Basophils (%) (Auto) 0.1, Neutrophils # (Auto) 9.59, Lymphocytes # (Auto) 1.32, Monocytes # (Auto) 1.21, Eosinophils # (Auto) 0.03, Basophils # (Auto) 0.01 07/24/16 08:19 Test 07/23/16 12:17 07/23/16 18:23 07/24/16 08:19 Urine Color YELLOW Urine Appearance CLOUDY (CLEAR) Urine pH 8.0 (4.5-7.5) Urine Specific [place] 1.016 (1.000-1.030) Urine Protein NEG (NEG) Urine Glucose (UA) NEG (NEG) Urine Ketones 3+ (NEG) Urine Occult Blood NEG (NEG) Urine Nitrite NEG (NEG) Urine Bilirubin NEG (NEG) Urine Urobilinogen NEG (NEG) Urine Leukocyte Esterase NEG (NEG) Urine WBC (Auto) 0 /hpf (0-5) Urine RBC (Auto) 0-4 /hpf (0-4) Urine Hyaline Casts (Auto) 0 /lpf (0-5) Urine Epithelial Cells (Auto) 5-10 /lpf (0-5) Urine Bacteria (Auto) NEG (NEG) Prothrombin Time 10.7 SECONDS (9.0-12.0) Prothromb Time International Ratio 1.0 (0.9-1.1) Activated Partial Thromboplast Time 22.2 SECONDS (21.0-31.0) Partial Thromboplastin Ratio 0.9 White Blood Count 12.18 K/uL (4.8-10.8) Red Blood Count 5.39 M/uL (4.7-6.1) Hemoglobin 15.4 g/dL (14.0-18.0) Hematocrit 45.1 % (42-52) Mean Corpuscular Volume 83.7 fL (80-100) Mean Corpuscular Hemoglobin 28.6 pg (25-34) Mean Corpuscular Hemoglobin Concent 34.1 g/dl (32-36) Platelet Count 313 K/uL (130-400) Mean Platelet Volume 10.1 fL (7.4-10.4) Neutrophils (%) (Auto) 78.8 % Lymphocytes (%) (Auto) 10.8 % Monocytes (%) (Auto) 9.9 % Eosinophils (%) (Auto) 0.2 % Basophils (%) (Auto) 0.1 % Neutrophils # (Auto) 9.59 K/uL (1.4-6.5) Lymphocytes # (Auto) 1.32 K/uL (1.2-3.4) Monocytes # (Auto) 1.21 K/uL (0.11-0.59) Eosinophils # (Auto) 0.03 K/uL (0-0.5) Basophils # (Auto) 0.01 K/uL (0-0.2) RDW Standard Deviation 36.4 fL (36.4-46.3) RDW Coefficient of Variation 12.0 % (11.5-14.5) Immature Granulocyte % (Auto) 0.2 % Immature Granulocyte # (Auto) 0.02 K/uL (0.00-0.02) Anion Gap 9.0 mmol/L (3-11) Est Creatinine Clear Calc Drug Dose 140.1 ml/min Estimated GFR () 143.7 Estimated GFR (Non- 124.0 BUN/Creatinine Ratio 18.1 (10-20) Calcium Level 9.1 mg/dl (8.5-10.1) Magnesium Level 2.2 mg/dl (1.8-2.4) Last 24 Hours Test 07/23/16 12:17 07/23/16 18:23 07/24/16 08:19 Urine Color YELLOW Urine Appearance CLOUDY Urine pH 8.0 Urine Specific [place] 1.016 Urine Protein NEG Urine Glucose (UA) NEG Urine Ketones 3+ Urine Occult Blood NEG Urine Nitrite NEG Urine Bilirubin NEG Urine Urobilinogen NEG Urine Leukocyte Esterase NEG Urine WBC (Auto) 0 /hpf Urine RBC (Auto) 0-4 /hpf Urine Hyaline Casts (Auto) 0 /lpf Urine Epithelial Cells (Auto) 5-10 /lpf Urine Bacteria (Auto) NEG Prothrombin Time 10.7 SECONDS Prothromb Time International Ratio 1.0 Activated Partial Thromboplast Time 22.2 SECONDS Partial Thromboplastin Ratio 0.9 White Blood Count 12.18 K/uL Red Blood Count 5.39 M/uL Hemoglobin 15.4 g/dL Hematocrit 45.1 % Mean Corpuscular Volume 83.7 fL Mean Corpuscular Hemoglobin 28.6 pg Mean Corpuscular Hemoglobin Concent 34.1 g/dl Platelet Count 313 K/uL Mean Platelet Volume 10.1 fL Neutrophils (%) (Auto) 78.8 % Lymphocytes (%) (Auto) 10.8 % Monocytes (%) (Auto) 9.9 % Eosinophils (%) (Auto) 0.2 % Basophils (%) (Auto) 0.1 % Neutrophils # (Auto) 9.59 K/uL Lymphocytes # (Auto) 1.32 K/uL Monocytes # (Auto) 1.21 K/uL Eosinophils # (Auto) 0.03 K/uL Basophils # (Auto) 0.01 K/uL RDW Standard Deviation 36.4 fL RDW Coefficient of Variation 12.0 % Immature Granulocyte % (Auto) 0.2 % Immature Granulocyte # (Auto) 0.02 K/uL Sodium Level 139 mmol/L Potassium Level 3.8 mmol/L Chloride Level 106 mmol/L Carbon Dioxide Level 24 mmol/L Anion Gap 9.0 mmol/L Blood Urea Nitrogen 16 mg/dl Creatinine 0.86 mg/dl Est Creatinine Clear Calc Drug Dose 140.1 ml/min Estimated GFR () 143.7 Estimated GFR (Non- 124.0 BUN/Creatinine Ratio 18.1 Random Glucose 85 mg/dl Calcium Level 9.1 mg/dl Magnesium Level 2.2 mg/dl Assessment and Plan 21-year-old male with a history of Hirschsprung's disease status post appendectomy presented to the emergency department on 07/23 with complaints of diffuse abdominal pain, nausea and vomiting. Found to have SBO per CT SBO, Hirschsprung's disease -Continue NPO for today -NS 1 liter bolus now -Increase IVF to 125 cc/hr -continue morphine 2 mg every hour as needed for pain -Continue Zofran 4 mg IV every 6 hours as needed for nausea -General surgery following-the do not feel that antibiotics are necessary -Consider GI consult DVT prophylaxis -Lovenox 40 mg subQ daily -TEDS, SCDs CODE STATUS -LEVEL I FULL CODE This chart was completed in part utilizing [employer] Voice Recognition software. Attempts were made to minimize the grammatical errors, random word insertions, pronoun errors and incomplete sentences. Any formal questions or concerns about the content, text or information contained within the body of this dictation should be directly addressed to the provider for clarification. Continued [facility] stay due to: multiple IV medications needed
[2016-07-24] MEDS ORDERED: SODIUM CHLORIDE 0.9% 1000ML 1,000 ML IV ONE (12:15)
[2016-07-24 15:32] VITALS: BP 137/62; PULSE 76; TEMP 37; O2SAT 97
[2016-07-24] MEDS: ENOXAPARIN 40 MG/0.4 ML SYR SQ SCH (21:10)
[2016-07-24 23:00] VITALS: BP 138/72; PULSE 72; TEMP 36.8; O2SAT 97
[2016-07-25] MEDS: MoRPHine SULFATE 2 MG/ML CARP IV PRN ×2 (01:10→03:00)
[2016-07-25] MEDS: SODIUM CHLORIDE 0.9% 1000ML 1,000 ML IV SCH ×3 (04:33→19:33)
--- NOTE | 2016-07-25 07:16 | Surgery Progress Note ---
Surgery Progress Note Date of Service July 25, 2016. Subjective + bowel movement (multiple), + flatus, No nausea, No vomiting Abdominal pain has resolved Objective Vital Signs: Date Time Temp Pulse Resp B/P Pulse Ox O2 Delivery O2 Flow Rate FiO2 07/24/16 23:56 Room Air 07/24/16 23:00 36.8 72 20 138/72 97 Room Air 07/24/16 15:45 Room Air 07/24/16 15:32 37.0 76 18 137/62 97 Room Air 07/24/16 08:00 Room Air 07/24/16 07:19 37.0 66 16 147/75 99 Room Air Abdomen: normal bowel sounds, non tender, non distended, soft Laboratory Results: Results Past 24 Hours Test 07/24/16 08:19 07/25/16 04:44 Range/Units White Blood Count 12.18 4.8-10.8 K/uL Red Blood Count 5.39 4.7-6.1 M/uL Hemoglobin 15.4 14.0-18.0 g/dL Hematocrit 45.1 42-52 % Mean Corpuscular Volume 83.7 80-100 fL Mean Corpuscular Hemoglobin 28.6 25-34 pg Mean Corpuscular Hemoglobin Concent 34.1 32-36 g/dl Platelet Count 313 130-400 K/uL Mean Platelet Volume 10.1 7.4-10.4 fL Neutrophils (%) (Auto) 78.8 % Lymphocytes (%) (Auto) 10.8 % Monocytes (%) (Auto) 9.9 % Eosinophils (%) (Auto) 0.2 % Basophils (%) (Auto) 0.1 % Neutrophils # (Auto) 9.59 1.4-6.5 K/uL Lymphocytes # (Auto) 1.32 1.2-3.4 K/uL Monocytes # (Auto) 1.21 0.11-0.59 K/uL Eosinophils # (Auto) 0.03 0-0.5 K/uL Basophils # (Auto) 0.01 0-0.2 K/uL RDW Standard Deviation 36.4 36.4-46.3 fL RDW Coefficient of Variation 12.0 11.5-14.5 % Immature Granulocyte % (Auto) 0.2 % Immature Granulocyte # (Auto) 0.02 0.00-0.02 K/uL Sodium Level 139 136-145 mmol/L Potassium Level 3.8 3.5-5.1 mmol/L Chloride Level 106 98-107 mmol/L Carbon Dioxide Level 24 21-32 mmol/L Anion Gap 9.0 3-11 mmol/L Blood Urea Nitrogen 16 7-18 mg/dl Creatinine 0.86 0.60-1.40 mg/dl Est Creatinine Clear Calc Drug Dose 140.1 ml/min Estimated GFR () 143.7 Estimated GFR (Non- 124.0 BUN/Creatinine Ratio 18.1 10-20 Random Glucose 85 70-99 mg/dl Calcium Level 9.1 8.5-10.1 mg/dl Magnesium Level 2.2 1.8-2.4 mg/dl Assessment & Plan SBO resolved Start clear liquids
[2016-07-25 07:30] VITALS: O2SAT 97
[2016-07-25 07:38] VITALS: BP 149/84; PULSE 86; TEMP 36.8; O2SAT 97
[2016-07-25 08:44] LABS: BASO % 0.2 %; BASO ABS # 0.02 K/uL (0-0.2); COMPLETE YES; EOS % 0.9 %; HEMATOCRIT 43.6 % (42-52); IG% 0.1 %; LYMPH % 12.1 %; MEAN CELL VOLUME 82.3 fL (80-100); MEAN CORPUSCULAR HEMOGLOBIN 28.5 pg (25-34); MEAN CORPUSCULAR HGB CONC 34.6 g/dl (32-36); MEAN PLATELET VOLUME 9.5 fL (7.4-10.4); MONO % 10.1 %; NEUT % 76.6 %; PLATELET COUNT 254 K/uL (130-400)
[2016-07-25 09:10] LABS: ALT/SGPT 27 U/L (12-78); BLOOD UREA NITROGEN 12 mg/dl (7-18); BUN/CREATININE RATIO 15.1 (10-20); CARBON DIOXIDE 26 mmol/L (21-32); CHLORIDE 102 mmol/L (98-107); CREATININE 0.77 mg/dl (0.60-1.40); GLUCOSE 94 mg/dl (70-99); MAGNESIUM 1.8 mg/dl (1.8-2.4); POTASSIUM 3.8 mmol/L (3.5-5.1); SODIUM 138 mmol/L (136-145)
[2016-07-25 09:13] LABS: ALKALINE PHOSPHATASE 70 U/L (45-117); AST/SGOT 16 U/L (15-37)
[2016-07-25 09:14] LABS: CALCIUM 8.8 mg/dl (8.5-10.1)
[2016-07-25 15:38] VITALS: BP 122/72; PULSE 76; TEMP 37; O2SAT 97
--- NOTE | 2016-07-25 15:54 | Hospitalist Progress Note ---
Hospitalist Progress Note Date of Service July 25, 2016. Subjective Pt evaluation today including: conversation w/ patient, physical exam, chart review, lab review, review of inpatient medication list Patient reports no abdominal pain this morning. No nausea. Excited about his clear liquid diet. Denies any fever or chills. He was passing gas and had a bowel movement this morning. It was diarrhea without any blood. Additional Comments: 6 system review negative. Please see pertinent positives in the history of present illness section. Objective Vital Signs Date Time Temp Pulse Resp B/P Pulse Ox O2 Delivery O2 Flow Rate FiO2 07/25/16 15:38 37.0 76 16 122/72 97 Room Air 07/25/16 07:38 36.8 86 19 149/84 97 Room Air 07/25/16 07:30 97 Room Air 07/24/16 23:56 Room Air 07/24/16 23:00 36.8 72 20 138/72 97 Room Air Physical Exam General Appearance: no apparent distress Eyes: EOMI ENT: + pertinent finding (oral mucosa more moist today) Neck: no JVD Respiratory/Chest: lungs clear Cardiovascular: regular rate, rhythm Abdomen: normal bowel sounds, non tender, soft Extremities: non-tender, no pedal edema Neurologic/Psychiatric: no motor/sensory deficits, oriented x 3 Skin: warm/dry Laboratory Results 07/25/16 08:15 Red Blood Count 5.30, Mean Corpuscular Volume 82.3, Mean Corpuscular Hemoglobin 28.5, Mean Corpuscular Hemoglobin Concent 34.6, Mean Platelet Volume 9.5, Neutrophils (%) (Auto) 76.6, Lymphocytes (%) (Auto) 12.1, Monocytes (%) (Auto) 10.1, Eosinophils (%) (Auto) 0.9, Basophils (%) (Auto) 0.2, Neutrophils # (Auto ) 7.58, Lymphocytes # (Auto) 1.20, Monocytes # (Auto) 1.00, Eosinophils # (Auto ) 0.09, Basophils # (Auto) 0.02 07/25/16 08:15 Test 07/25/16 08:15 White Blood Count 9.90 K/uL (4.8-10.8) Red Blood Count 5.30 M/uL (4.7-6.1) Hemoglobin 15.1 g/dL (14.0-18.0) Hematocrit 43.6 % (42-52) Mean Corpuscular Volume 82.3 fL (80-100) Mean Corpuscular Hemoglobin 28.5 pg (25-34) Mean Corpuscular Hemoglobin Concent 34.6 g/dl (32-36) Platelet Count 254 K/uL (130-400) Mean Platelet Volume 9.5 fL (7.4-10.4) Neutrophils (%) (Auto) 76.6 % Lymphocytes (%) (Auto) 12.1 % Monocytes (%) (Auto) 10.1 % Eosinophils (%) (Auto) 0.9 % Basophils (%) (Auto) 0.2 % Neutrophils # (Auto) 7.58 K/uL (1.4-6.5) Lymphocytes # (Auto) 1.20 K/uL (1.2-3.4) Monocytes # (Auto) 1.00 K/uL (0.11-0.59) Eosinophils # (Auto) 0.09 K/uL (0-0.5) Basophils # (Auto) 0.02 K/uL (0-0.2) RDW Standard Deviation 34.6 fL (36.4-46.3) RDW Coefficient of Variation 11.6 % (11.5-14.5) Immature Granulocyte % (Auto) 0.1 % Immature Granulocyte # (Auto) 0.01 K/uL (0.00-0.02) Anion Gap 10.0 mmol/L (3-11) Est Creatinine Clear Calc Drug Dose 156.5 ml/min Estimated GFR () > 150.0 Estimated GFR (Non- 129.7 BUN/Creatinine Ratio 15.1 (10-20) Calcium Level 8.8 mg/dl (8.5-10.1) Magnesium Level 1.8 mg/dl (1.8-2.4) Total Bilirubin 1.4 mg/dl (0.2-1) Direct Bilirubin 0.3 mg/dl (0-0.2) Aspartate Amino Transf (AST/SGOT) 16 U/L (15-37) Alanine Aminotransferase (ALT/SGPT) 27 U/L (12-78) Alkaline Phosphatase 70 U/L (45-117) Total Protein 7.4 gm/dl (6.4-8.2) Albumin 3.9 gm/dl (3.4-5.0) Last 24 Hours Test 07/25/16 08:15 White Blood Count 9.90 K/uL Red Blood Count 5.30 M/uL Hemoglobin 15.1 g/dL Hematocrit 43.6 % Mean Corpuscular Volume 82.3 fL Mean Corpuscular Hemoglobin 28.5 pg Mean Corpuscular Hemoglobin Concent 34.6 g/dl Platelet Count 254 K/uL Mean Platelet Volume 9.5 fL Neutrophils (%) (Auto) 76.6 % Lymphocytes (%) (Auto) 12.1 % Monocytes (%) (Auto) 10.1 % Eosinophils (%) (Auto) 0.9 % Basophils (%) (Auto) 0.2 % Neutrophils # (Auto) 7.58 K/uL Lymphocytes # (Auto) 1.20 K/uL Monocytes # (Auto) 1.00 K/uL Eosinophils # (Auto) 0.09 K/uL Basophils # (Auto) 0.02 K/uL RDW Standard Deviation 34.6 fL RDW Coefficient of Variation 11.6 % Immature Granulocyte % (Auto) 0.1 % Immature Granulocyte # (Auto) 0.01 K/uL Sodium Level 138 mmol/L Potassium Level 3.8 mmol/L Chloride Level 102 mmol/L Carbon Dioxide Level 26 mmol/L Anion Gap 10.0 mmol/L Blood Urea Nitrogen 12 mg/dl Creatinine 0.77 mg/dl Est Creatinine Clear Calc Drug Dose 156.5 ml/min Estimated GFR () > 150.0 Estimated GFR (Non- 129.7 BUN/Creatinine Ratio 15.1 Random Glucose 94 mg/dl Calcium Level 8.8 mg/dl Magnesium Level 1.8 mg/dl Total Bilirubin 1.4 mg/dl Direct Bilirubin 0.3 mg/dl Aspartate Amino Transf (AST/SGOT) 16 U/L Alanine Aminotransferase (ALT/SGPT) 27 U/L Alkaline Phosphatase 70 U/L Total Protein 7.4 gm/dl Albumin 3.9 gm/dl Assessment and Plan 21-year-old male with a history of Hirschsprung's disease status post appendectomy presented to the emergency department on 07/23 with complaints of diffuse abdominal pain, nausea and vomiting. Found to have SBO per CT SBO, Hirschsprung's disease-resolving -gen surgery on board-->advance to clears -? maybe d/c tomorrow if continuing to look good DVT prophylaxis -Lovenox 40 mg subQ daily -TEDS, SCDs CODE STATUS -LEVEL I FULL CODE This chart was completed in part utilizing [employer] Speech Voice Recognition software. Attempts were made to minimize the grammatical errors, random word insertions, pronoun errors and incomplete sentences. Any formal questions or concerns about the content, text or information contained within the body of this dictation should be directly addressed to the provider for clarification.
[2016-07-25] MEDS: ENOXAPARIN 40 MG/0.4 ML SYR SQ SCH (21:26)
[2016-07-25 23:25] VITALS: BP 129/70; PULSE 55; TEMP 36.6; O2SAT 94
[2016-07-26] MEDS: SODIUM CHLORIDE 0.9% 1000ML 1,000 ML IV SCH ×2 (03:34→11:15)
[2016-07-26 03:50] VITALS: BP 107/61; PULSE 98; TEMP 37.2; O2SAT 97
--- NOTE | 2016-07-26 07:04 | Surgery Progress Note ---
Surgery Progress Note Date of Service July 26, 2016. Subjective + bowel movement, + diet (tolerated clear liquids), + feeling well, + flatus, No complaints, No nausea, No vomiting Objective Vital Signs: Date Time Temp Pulse Resp B/P Pulse Ox O2 Delivery O2 Flow Rate FiO2 07/26/16 03:50 37.2 98 16 107/61 97 Nasal Cannula 3.0 07/25/16 23:26 Room Air 07/25/16 23:25 36.6 55 18 129/70 94 Room Air 07/25/16 16:20 Room Air 07/25/16 15:38 37.0 76 16 122/72 97 Room Air 07/25/16 07:38 36.8 86 19 149/84 97 Room Air 07/25/16 07:30 97 Room Air Abdomen: non tender, non distended, soft Laboratory Results: Results Past 24 Hours Test 07/25/16 08:15 07/26/16 04:44 Range/Units White Blood Count 9.90 4.8-10.8 K/uL Red Blood Count 5.30 4.7-6.1 M/uL Hemoglobin 15.1 14.0-18.0 g/dL Hematocrit 43.6 42-52 % Mean Corpuscular Volume 82.3 80-100 fL Mean Corpuscular Hemoglobin 28.5 25-34 pg Mean Corpuscular Hemoglobin Concent 34.6 32-36 g/dl Platelet Count 254 130-400 K/uL Mean Platelet Volume 9.5 7.4-10.4 fL Neutrophils (%) (Auto) 76.6 % Lymphocytes (%) (Auto) 12.1 % Monocytes (%) (Auto) 10.1 % Eosinophils (%) (Auto) 0.9 % Basophils (%) (Auto) 0.2 % Neutrophils # (Auto) 7.58 1.4-6.5 K/uL Lymphocytes # (Auto) 1.20 1.2-3.4 K/uL Monocytes # (Auto) 1.00 0.11-0.59 K/uL Eosinophils # (Auto) 0.09 0-0.5 K/uL Basophils # (Auto) 0.02 0-0.2 K/uL RDW Standard Deviation 34.6 36.4-46.3 fL RDW Coefficient of Variation 11.6 11.5-14.5 % Immature Granulocyte % (Auto) 0.1 % Immature Granulocyte # (Auto) 0.01 0.00-0.02 K/uL Sodium Level 138 136-145 mmol/L Potassium Level 3.8 3.5-5.1 mmol/L Chloride Level 102 98-107 mmol/L Carbon Dioxide Level 26 21-32 mmol/L Anion Gap 10.0 3-11 mmol/L Blood Urea Nitrogen 12 7-18 mg/dl Creatinine 0.77 0.60-1.40 mg/dl Est Creatinine Clear Calc Drug Dose 156.5 ml/min Estimated GFR () > 150.0 Estimated GFR (Non- 129.7 BUN/Creatinine Ratio 15.1 10-20 Random Glucose 94 70-99 mg/dl Calcium Level 8.8 8.5-10.1 mg/dl Magnesium Level 1.8 1.8-2.4 mg/dl Total Bilirubin 1.4 0.2-1 mg/dl Direct Bilirubin 0.3 0-0.2 mg/dl Aspartate Amino Transf (AST/SGOT) 16 15-37 U/L Alanine Aminotransferase (ALT/SGPT) 27 12-78 U/L Alkaline Phosphatase 70 45-117 U/L Total Protein 7.4 6.4-8.2 gm/dl Albumin 3.9 3.4-5.0 gm/dl Assessment & Plan SBO resolved Advance to regular diet If tolerates diet consider D/C later today
[2016-07-26 07:16] VITALS: BP 118/72; PULSE 63; TEMP 36.8; O2SAT 98
[2016-07-26 08:03] LABS: BASO % 0.2 %; BASO ABS # 0.01 K/uL (0-0.2); COMPLETE YES; EOS % 2.2 %; HEMATOCRIT 42.8 % (42-52); IG% 0.2 %; LYMPH % 29.6 %; LYMPH ABS # 1.46 K/uL (1.2-3.4); MEAN CELL VOLUME 83.6 fL (80-100); MEAN CORPUSCULAR HEMOGLOBIN 28.9 pg (25-34); MEAN CORPUSCULAR HGB CONC 34.6 g/dl (32-36); MEAN PLATELET VOLUME 9.8 fL (7.4-10.4); NEUT % 53.8 %; PLATELET COUNT 259 K/uL (130-400); RED BLOOD COUNT 5.12 M/uL (4.7-6.1); WHITE BLOOD COUNT 4.93 K/uL (4.8-10.8)
[2016-07-26 08:33] LABS: BUN/CREATININE RATIO 9.1 (10-20); CREATININE 0.88 mg/dl (0.60-1.40); POTASSIUM 3.7 mmol/L (3.5-5.1)
--- NOTE | 2016-07-26 11:12 | Discharge Instructions ---
Discharge Instructions Date of Service July 26, 2016. Admission Reason for Admission: SBO Discharge Discharge Diagnosis / Problem: SBO Discharge Goals Goal(s): Improve function, Diagnostic testing Activity Recommendations Activity Limitations: resume your previous activity . Instructions / Follow-Up Instructions / Follow-Up You were treated in the hospital for a small bowel obstruction. There is a chance that this might happen again in the future Please eat regular meals and stay well hydrated with water Please follow up with your primary care physician within one week of discharge Please also follow up with the surgeon as scheduled Call your doctor or return to the emergency department if you have any of the following symptoms: -Fever of 101F or greater -Persistent vomiting - Persistent diarrhea -returning abdominal pain Current Hospital Diet Patient's current hospital diet: Regular Diet Discharge Diet Recommended Diet: Regular Diet Pending Studies Studies pending at discharge: no Laboratory Results 07/26/16 07:24 Red Blood Count 5.12, Mean Corpuscular Volume 83.6, Mean Corpuscular Hemoglobin 28.9, Mean Corpuscular Hemoglobin Concent 34.6, Mean Platelet Volume 9.8, Neutrophils (%) (Auto) 53.8, Lymphocytes (%) (Auto) 29.6, Monocytes (%) (Auto) 14.0, Eosinophils (%) (Auto) 2.2, Basophils (%) (Auto) 0.2, Neutrophils # (Auto ) 2.65, Lymphocytes # (Auto) 1.46, Monocytes # (Auto) 0.69, Eosinophils # (Auto ) 0.11, Basophils # (Auto) 0.01 07/26/16 07:24 Test 07/26/16 07:24 White Blood Count 4.93 K/uL (4.8-10.8) Red Blood Count 5.12 M/uL (4.7-6.1) Hemoglobin 14.8 g/dL (14.0-18.0) Hematocrit 42.8 % (42-52) Mean Corpuscular Volume 83.6 fL (80-100) Mean Corpuscular Hemoglobin 28.9 pg (25-34) Mean Corpuscular Hemoglobin Concent 34.6 g/dl (32-36) Platelet Count 259 K/uL (130-400) Mean Platelet Volume 9.8 fL (7.4-10.4) Neutrophils (%) (Auto) 53.8 % Lymphocytes (%) (Auto) 29.6 % Monocytes (%) (Auto) 14.0 % Eosinophils (%) (Auto) 2.2 % Basophils (%) (Auto) 0.2 % Neutrophils # (Auto) 2.65 K/uL (1.4-6.5) Lymphocytes # (Auto) 1.46 K/uL (1.2-3.4) Monocytes # (Auto) 0.69 K/uL (0.11-0.59) Eosinophils # (Auto) 0.11 K/uL (0-0.5) Basophils # (Auto) 0.01 K/uL (0-0.2) RDW Standard Deviation 36.8 fL (36.4-46.3) RDW Coefficient of Variation 12.0 % (11.5-14.5) Immature Granulocyte % (Auto) 0.2 % Immature Granulocyte # (Auto) 0.01 K/uL (0.00-0.02) Anion Gap 6.0 mmol/L (3-11) Est Creatinine Clear Calc Drug Dose 136.9 ml/min Estimated GFR () 142.3 Estimated GFR (Non- 122.8 BUN/Creatinine Ratio 9.1 (10-20) Calcium Level 9.0 mg/dl (8.5-10.1) Medical Emergencies . Who to Call and When: Medical Emergencies: If at any time you feel your situation is an emergency, please call 911 immediately. . Non-Emergent Contact Non-Emergency issues call your: Primary Care Provider . . "Provider Documentation" section prepared by Lakeshia Valiente. . VTE Core Measure Inpt VTE Proph given/why not?: Enoxaparin (Lovenox)PREMA, T.E[employer]Buzz. Tamiko, SCD's
--- NOTE | 2016-07-26 11:18 | Discharge Summary ---
Discharge Summary Date of Service July 26, 2016. Discharge Summary Admission Date: July 23, 2016 at 15:41 Discharge Date: July 26, 2016 Discharge Disposition: Home Principal Diagnosis: SBO Consultations: general surgery Referrals At Discharge Follow up Referrals: Physician Referral - Within 1-2 Weeks with Nicholas Mayfield M.D. Discharge Exam Tolerated eggs, toast and coffee for breakfast. The patient denies any returning pain. No nausea. He did not have a bowel movement yet today, but he feels that he should be able to have bowel movement. He is passing gas. He did have loose stools yesterday. Denies any fever or chills. Review of Systems: Constitutional: No fever Respiratory: No shortness of breath Cardiovascular: No chest pain Abdomen: No vomiting Physical Exam: General Appearance: no apparent distress Eyes: EOMI Neck: no JVD Respiratory/Chest: lungs clear Cardiovascular: regular rate, rhythm Abdomen / GI: normal bowel sounds, non tender, soft Extremities: no calf tenderness, no pedal edema Neurologic/Psychiatric: no motor/sensory deficits, oriented x 3 Skin: warm/dry Hospital Course 21-year-old male with a history of Hirschsprung's disease status post appendectomy presented to the emergency department on 07/23 with complaints of diffuse abdominal pain, nausea and vomiting. Found to have SBO per CT SBO, Hirschsprung's disease-resolving -Admitted to medical floor -kept NPO -Hydrated with IV fluids. Treated with morphine and Zofran as needed for symptoms. -General surgery consult. Conservative management. -Diet was slowly advanced and tolerated. -On day of discharge, patient is tolerating a diet and is pain-free. -He was given a follow-up appointment with Gen. surgery in addition to a primary care physician. DVT prophylaxis -Lovenox 40 mg subQ daily -TEDS, SCDs CODE STATUS -LEVEL I FULL CODE This chart was completed in part utilizing [employer] Speech Voice Recognition software. Attempts were made to minimize the grammatical errors, random word insertions, pronoun errors and incomplete sentences. Any formal questions or concerns about the content, text or information contained within the body of this dictation should be directly addressed to the provider for clarification. Total Time Spent: Greater than 30 minutes This includes examination of the patient, discharge planning, medication reconciliation, and communication with other providers. Discharge Instructions Please refer to the electronic Patient Visit Report (Discharge Instructions) for additional information. Follow-Up PCP general surgery Additional Copies To Nicholas Mayfield M.D.
[2016-07-26 13:11] VITALS: BP 118/72; PULSE 63; TEMP 36.8; O2SAT 98
== END 2016-07-26 13:35 | disposition home or self-care (01) | DRG 389 ==
LOC: ENRESERVTM → ENRESERVDT → C.EDB 10:16 → C.MSN 15:41
PROVIDERS: ADMIT Hospitalist; ATTEND Hospitalist
DX: K56.60 Unspecified intestinal obstruction (principal); Q43.1 Hirschsprung's disease; D72.829 Elevated white blood cell count, unspecified; Z90.49 Acquired absence of other specified parts of digestive tract